=== PATIENT | male | born 1950 | race Two or more races ===

== ENCOUNTER 2019-05-24 03:48 | Emergency (ER) | payer OTHER ==
[~2019-05-24] VITALS: Ht 177.8 cm; Wt 77.1 kg
[2019-05-24] MEDS ORDERED: GLUMETZA500 MG PO (04:28)
[2019-05-24] MEDS ORDERED: ACID REDUCER20 M1 PO (04:29)
== END 2019-05-24 06:23 | disposition home or self-care (01) ==
LOC: ER 03:48
DX: R06.02 Shortness of breath (principal)